=== PATIENT | male | born 1995 | race Caucasian/White ===

== ENCOUNTER 2022-05-28 09:02 | Emergency (ER) | payer BC ==
[~2022-05-28] VITALS: Ht 190.5 cm; Wt 113.4 kg
[2022-05-28 09:12] VITALS: BP_SYST 130
--- NOTE | 2022-05-28 09:15 | NUR ---
Patient triaged and placed in COVID tent 1. VSS and patient appears in no acute distress at this time. Accompanied by self and MD notified of need for MSE.
--- NOTE | 2022-05-28 09:18 | NUR ---
patient AAOx4 from home c/o dizziness x1 this morning at work. stated being COVID + for 7 days. noted to have blood tinge mucous this morning. denies any N/V/D. remains afebrile. stated taking advil and excedrin for his covid symptoms at home. denies any SOB or CP at this time.
--- NOTE | 2022-05-28 09:25 | NUR ---
ER Dr. Rowland at bedside examining patient.
[2022-05-28] MEDS ORDERED: CETI1TAB2 PO (09:36)
[2022-05-28] MEDS ORDERED: ZIT250 PO (09:36)
[2022-05-28 09:50] VITALS: BP_SYST 130
--- NOTE | 2022-05-28 09:53 | NUR ---
Patient given written and verbal discharge instructions and verbalizes understanding. Dr. Kashif HERNANDEZ MD discussed with patient the results and treatment provided. Patient in stable condition. ID arm band removed. Rx of Zyrtec, Zithromax given. Patient educated on pain management and to follow up with PMD. Pain Scale 0/10 Opportunity for questions provided and answered. Medication side effect fact sheet provided.
== END 2022-05-28 09:53 | disposition home or self-care (01) ==
LOC: SED 09:02
DX: U07.1 COVID-19 (principal); Z79.899 Other long term (current) drug therapy
CPT/HCPCS: 99283